=== PATIENT | male | born 1975 | race American Indian/Alaskan Native ===

== ENCOUNTER 2022-01-10 10:15 | Emergency (ER) | payer SELFPAY ==
[2022-01-10] MEDS ORDERED: diphenhydrAMINE 50 MG/ML VIAL IV ONE (10:49)
[2022-01-10] MEDS ORDERED: methylPREDNISolone Sod Succinate 125 MG/2 ML INJ IV ONE (10:49)
[2022-01-10] MEDS ORDERED: FAMOTIDINE 20 MG TAB PO ONE (10:50)
--- NOTE | 2022-01-10 10:53 | Emergency Department Report ---
ED Allergic Reaction HPI - General Chief complaint: Allergic Reaction Stated complaint: ALLERGIC REACTION Source: patient Mode of arrival: Ambulatory Limitations: No Limitations - History of Present Illness Initial Comments: 46-year-old male presents to the ED complaining lip swelling that started around 2 AM this morning. Patient states that he has had similar symptoms in the past and the swelling has went away on his own. Patient states once he went to an urgent care center and was given a shot and the swelling decreased. Patient states that he is taking an NOLVIA inhibitor but was told by his primary care doctor that it was not the cause of his lip swelling. Patient is alert and oriented x3. No acute distress noted. No ill appearance noted. MD Complaint: allergic reaction -: This morning Exposure: unknown Symptoms: itching, lip swelling Treatment Prior to Arrival: benadryl Previous Allergy History: none - Related Data Previous Rx's Medication Instructions Recorded Last Taken Type Famotidine [Pepcid] 20 mg PO BID 3 Days #6 tablet 01/10/22 Unknown Rx predniSONE [Deltasone] 50 mg PO QDAY 5 Days #5 tab 01/10/22 Unknown Rx Allergies Allergy/AdvReac Type Severity Reaction Status Date / Time No Known Allergies Allergy Verified 01/10/22 10:19 ED Review of Systems ROS: Stated complaint: ALLERGIC REACTION Other details as noted in HPI Constitutional: denies: chills, fever Eyes: denies: eye pain, eye discharge, vision change ENT: denies: ear pain, throat pain Respiratory: denies: cough, shortness of breath, wheezing Cardiovascular: denies: chest pain, palpitations Endocrine: no symptoms reported Gastrointestinal: denies: abdominal pain, nausea, diarrhea Genitourinary: denies: urgency, dysuria Musculoskeletal: denies: back pain, joint swelling, arthralgia Skin: denies: rash, lesions Neurological: denies: headache, weakness, paresthesias Psychiatric: denies: anxiety, depression Hematological/Lymphatic: denies: easy bleeding, easy bruising ED Past Medical Hx - Past Medical History Previous Medical History?: Yes Hx Hypertension: Yes - Surgical History Past Surgical History?: No - Medications Home Medications: Home Medications Medication Instructions Recorded Confirmed Last Taken Type Famotidine [Pepcid] 20 mg PO BID 3 Days #6 tablet 01/10/22 Unknown Rx predniSONE [Deltasone] 50 mg PO QDAY 5 Days #5 tab 01/10/22 Unknown Rx ED Physical Exam - General Limitations: No Limitations General appearance: alert, in no apparent distress - Head Head exam: Present: atraumatic, normocephalic - Eye Eye exam: Present: normal appearance - ENT ENT exam: Present: mucous membranes moist - Neck Neck exam: Present: normal inspection - Respiratory Respiratory exam: Present: normal lung sounds bilaterally. Absent: respiratory distress - Cardiovascular Cardiovascular Exam: Present: regular rate, normal rhythm. Absent: systolic murmur, diastolic murmur, rubs, gallop - GI/Abdominal GI/Abdominal exam: Present: soft, normal bowel sounds - Rectal Rectal exam: Present: deferred - Extremities Exam Extremities exam: Present: normal inspection - Back Exam Back exam: Present: normal inspection - Neurological Exam Neurological exam: Present: alert, oriented X3 - Psychiatric Psychiatric exam: Present: normal affect, normal mood - Skin Skin exam: Present: warm, dry, intact, normal color. Absent: rash ED Course Vital Signs 01/10/22 01/10/22 10:19 11:15 Temperature 98.7 F 98.7 F Pulse Rate 102 H 88 Respiratory 17 14 Rate Blood Pressure 110/76 106/70 [Right] O2 Sat by Pulse 98 100 Oximetry ED Medical Decision Making - Medical Decision Making 46-year-old male presents to the ED complaining lip swelling that started around 2 AM this morning. Patient states that he has had similar symptoms in the past and the swelling has went away on his own. Patient states once he went to an urgent care center and was given a shot and the swelling decreased. Patient states that he is taking an NOLVIA inhibitor but was told by his primary care doctor that it was not the cause of his lip swelling. Patient is alert and oriented x3. No acute distress noted. No ill appearance noted. Physical examination edema noted to the upper and lower lip. Rechecked the patient is resting quietly , comfortable and feeling better. I discussed the results of diagnostic study, my clinical impression and the plan for further treatment with the patient. Patient agrees with plan and discharge at this present time. All question addressed. I have given the patient instruction regarding a diagnosis ,expectation ,follow- up and return precaution. I explained to the patient that emergent condition may arise and to return to the ED for new worsen and any new persisting condition. I have explained the importance of following up with the primary care physician or referral physician listed below has instructed. The patient verbalized understanding of discharge instruction. Critical care attestation.: If time is entered above; I have spent that time in minutes in the direct care of this critically ill patient, excluding procedure time. ED Disposition Clinical Impression: Allergic reaction Qualifiers: Encounter type: initial encounter Qualified Code(s): T78.40XA - Allergy, unspecified, initial encounter Disposition: 01 HOME / SELF CARE / HOMELESS Is pt being admited?: No Does the pt Need Aspirin: No Condition: Stable Instructions: Allergies, Adult, [id number] Additional Instructions: Take medication as prescribed Return to ED for any worsening symptom Prescriptions: predniSONE [Deltasone] 50 mg PO QDAY 5 Days #5 tab Famotidine [Pepcid] 20 mg PO BID 3 Days #6 tablet Referrals: MEJIA BELL MD [Primary Care Provider] - 3-5 Days Forms: Work/School Release Form(ED) Time of Disposition: 12:46
[2022-01-10 11:16] VITALS: BP 106/70
== END 2022-01-10 12:56 | disposition home or self-care (01) ==
LOC: ED 10:15
DX: T78.40XA Allergy, unspecified, initial encounter (principal); I10 Essential (primary) hypertension; Z79.899 Other long term (current) drug therapy; X58.XXXA Exposure to other specified factors, initial encounter
CPT/HCPCS: 96374; 96375; 99282; J1200; J2930